=== PATIENT | female | born 1970 | race Caucasian/White ===

== ENCOUNTER 2016-12-16 20:48 | Emergency (ER) | payer MEDICAID ==
[~2016-12-16] VITALS: Ht 157.5 cm; Wt 81.6 kg
[2016-12-16 21:10] VITALS: BP 125/90
--- NOTE | 2016-12-16 22:45 | NUR ---
PT TAKEN TO BED 5
--- NOTE | 2016-12-16 23:50 | NUR ---
45Y F PRESENTED IN ER C/O OF BURNING PAIN TO RT SIDE OF OF HER TRUNK FOR DAYS NOW. PAIN IS 10/10 IN SCALE.
--- NOTE | 2016-12-16 23:54 | NUR ---
Dr. Cox evaluating patient at bedside.
[2016-12-17] MEDS ORDERED: KETOROLAC 60 MG/2 ML VIAL IM ONE (00:05)
[2016-12-17 00:39] VITALS: BP 125/90
--- NOTE | 2016-12-17 00:39 | NUR ---
Patient discharged with v/s stable. Written and verbal after care instructions given and explained. Patient alert, oriented and verbalized understanding of instructions. Ambulatory with steady gait. All questions addressed prior to discharge. ID band removed. Patient advised to follow up with PMD. Rx of NORCO, ACYCLOVIR, MOTRIN, PREDNISONE given. Patient educated on indication of medication including possible reaction and side effects. Opportunity to ask questions provided and answered.
== END 2016-12-17 00:39 | disposition home or self-care (01) ==
LOC: MED 20:48
DX: B02.9 Zoster without complications (principal)
CPT/HCPCS: 96372; 99283; J1885

== ENCOUNTER 2017-11-06 12:14 | Emergency (ER) | payer MEDICAID ==
[~2017-11-06] VITALS: Ht 157.5 cm; Wt 81.6 kg
[2017-11-06 12:16] VITALS: BP 102/62
--- NOTE | 2017-11-06 12:24 | NUR ---
46Y/F BIB SELF C/O RT KNEE PAIN, FOR 6 WEEKS, PT STATES NO TRAUMA OR INJURY. PATIENT STATES PAIN OF 7/10 AT THIS TIME; VSS; PATIENT POSITIONED FOR COMFORT;ER MD MADE AWARE OF PT STATUS.
--- NOTE | 2017-11-06 12:27 | NUR ---
Dr. Skelton evaluating patient.
--- NOTE | 2017-11-06 12:33 | NUR ---
Patient taken to XRAY via wheelchair by tech.
[2017-11-06 14:22] VITALS: BP 113/77
== END 2017-11-06 14:22 | disposition home or self-care (01) ==
LOC: MED 12:14
DX: S76.111A Strain of right quadriceps muscle, fascia and tendon, initial encounter (principal); X58.XXXA Exposure to other specified factors, initial encounter; Y93.89 Activity, other specified; Y92.89 Other specified places as the place of occurrence of the external cause; Y99.8 Other external cause status
CPT/HCPCS: 36415; 73562; 84550; 99285